=== PATIENT | female | born 1985 | race Caucasian/White ===

== ENCOUNTER 2019-09-12 17:24 | Emergency (ER) | payer SELFPAY ==
[~2019-09-12] VITALS: Ht 170.2 cm; Wt 70.1 kg
--- NOTE | 2019-09-12 17:52 | PHYS DOC ---
General Adult EDM: Chief Complaint: MECHANICAL FALL HPI: HPI: ''..My kids were making noise down stairs last night...".." I went down to check on them and missed a step...falling on my butt the last 4 steps..I still got all this swelling and blue discoloration..and pain in the area. I Patient is a 34 year old female who presents with above hx of fall on stairs last night at approximately midnight.with contusion to Rt. gluteal. Patient has a 18 x 24 area of ecchymosis and swelling on right gluteal area. Center of area somewhat fluctuant. Patient has some lower lumbar sacral tenderness. There is no pain on loading of femur on right. Distal neurovascular is equal to left leg. Patient has been using ice packs. Patient denies any history of coagulopathy. Patient is not on any [id number] home remedies or herbals currently. Patient has been taking some Advil. No history of coagulopathy of family members. No history of immunosuppression. No history of recent travel outside the [place] area or ill contacts. Review of Systems: Review of Systems: Constitutional: Denies fever or chills Eyes: Denies change in visual acuity HENT: Denies nasal congestion or sore throat Respiratory: Denies cough or shortness of breath Cardiovascular: Denies chest pain or edema GI: Denies abdominal pain, nausea, vomiting, bloody stools or diarrhea : Denies dysuria Musculoskeletal: Denies back pain or joint pain Exceot complaints of Rt.Hip pain. Integument: Denies rash Neurologic: Denies headache, focal weakness or sensory changes Endocrine: Denies polyuria or polydipsia Lymphatic: Denies swollen glands Psychiatric: Denies depression or anxiety Heart Score: Risk Factors: Risk Factors: DM, Current or recent (<one month) smoker, HTN, HLP, family history of CAD, obesity. Risk Scores: Score 0 - 3: 2.5% MACE over next 6 weeks - Discharge Home Score 4 - 6: 20.3% MACE over next 6 weeks - Admit for Clinical Observation Score 7 - 10: 72.7% MACE over next 6 weeks - Early Invasive Strategies Family History: Family History: Noncontributory to presentation Current Medications: Current Meds: See nursing for home meds Allergies: Allergies: No known drug allergies Physical Exam: PE: Constitutional: Well developed, well nourished, no acute distress, non-toxic appearance. [] HENT: Normocephalic, atraumatic, bilateral external ears normal, oropharynx moist, no oral exudates, nose normal. [] Eyes: PERRLA, EOMI, conjunctiva normal, no discharge. [] Neck: Normal range of motion, no tenderness, supple, no stridor. [] Cardiovascular:Heart rate regular rhythm, no murmur [] Lungs & Thorax: Bilateral breath sounds clear to auscultation [] Abdomen: Bowel sounds normal, soft, no tenderness, no masses, no pulsatile masses. [] Skin: Warm, dry, no erythema, no rash. [] Back: No tenderness, no CVA tenderness. [] Extremities: No tenderness, no cyanosis, no clubbing, ROM intact, no edema. [] Very large hematoma right gluteal area as per HPI Neurologic: Alert and oriented X 3, normal motor function, normal sensory function, no focal deficits noted. [] Psychologic: Affect normal, judgement normal, mood normal. [] EKG: EKG: [] Radiology/Procedures: Radiology/Procedures: [][place] [address] IMAGING REPORT Signed PATIENT: STEVE MURPHY LACCOUNT: [id number] : 1985 LOCATION: ER AGE: 34 SEX: F EXAM STATUS: REG ER ORD. PHYSICIAN: THIERRY ANDERSON MD REASON: fall down stairs PROCEDURE: CT LUMBAR SPINE WO CONTRAST Exam: CT the lumbar spine and pelvis without contrast INDICATION: Fall downstairs TECHNIQUE: Sequential axial images through the lumbar spine pelvis obtained without IV contrast. Sagittal and coronal reformatted images were reconstructed from the axial data and reviewed. Comparisons: None FINDINGS: Lumbar spine: Vertebral body heights and alignment are well-maintained. Fracture to the lumbar spine is not identified. No significant spondylotic changes lumbar spine. Visualized paraspinal soft tissues are unremarkable. Pelvis: Centered within the subcutaneous fat of the right buttock there is a 8.7 x 2.8 cm hyperdense fluid collection representing hematoma. There is surrounding stranding within the adjacent subcutaneous fat. Bone mineralization is normal. No acute or healed fractures. Visualized intrapelvic structures are unremarkable. IMPRESSION: 1. A 8.7 x 2.8 cm hematoma centered within the subcutaneous fat of the right buttock adjacent inflammatory changes. No acute fractures in the pelvis seen. 2. Negative CT L-spine for acute traumatic injury. Exposure: One or more of the following in the visualized dose reduction techniques were utilized for this examination: 1. Automated exposure control 2. Adjustment of the MA and/or KV according to patient size 3. Use of iterative of reconstructive technique Electronically signed by: Angelica Lane MD (09/12/2019 7:06 PM) [id number] DICTATED AND SIGNED BY: ANGELICA LANE MD DATE: 09/12/191905 CC: THIERRY ANDERSON MD; PCP,NO ~ Course & Med Decision Making: Course & Med Decision Making Pertinent Labs and Imaging studies reviewed. (See chart for details) Patient continue ice packs at least 4 times a day for the next week. After 1 week if no expansion of hematoma may start using warm moist heat packs. Must monitor for signs of infection. Would avoid NSAIDs currently. Take only Tylenol for pain. Follow-up with primary care. Patient issued a disc of CT of area. Patient follow-up primary care. Patient return if any concerns. Margins of hematoma marked with pen to evaluate for extension. Impression: 1. Large hematoma / contusion right gluteal area 18 x 24 cm [] Dragon Disclaimer: Dragon Disclaimer: This electronic medical record was generated, in whole or in part, using a voice recognition dictation system. Departure Departure: Disposition: 01 HOME/RESIDENCE PRIOR TO ADM Condition: STABLE Referrals: PCP,NO (PCP) Scripts Oxycodone Hcl/Acetaminophen (PERCOCET 5-325 MG TABLET ) 1 Each Tablet 1 TAB PO PRN QID PRN for PAIN MDD 4 Tablet(s) for 30 Days, #30 TAB 0 Refills Prov: THIERRY ANDERSON MD 09/12/19 Justification of Admission: Justification of Admission: Justification of Admission Dx: N/A Dragon Disclaimer This chart was dictated in whole or in part using Voice Recognition software in a busy, high-work load, and often noisy Emergency Department environment. It may contain unintended and wholly unrecognized errors or omissions. THIERRY ANDERSON MD Sep 12, 2019 17:52
[2019-09-12] MEDS ORDERED: OXYC1TAB15 PO (18:35)
[2019-09-12 19:02] VITALS: BP 123/83
[2019-09-12 19:08] LABS: BARBITURATES NEG (NEG); BENZODIAZEPINES NEG (NEG); CANNABINOIDS NEG (NEG); COCAINE NEG (NEG); METHADONE POS (NEG); OPIATES NEG (NEG); PHENCYCLIDINE NEG (NEG)
--- NOTE | 2019-09-12 19:08 | RAD ---
Exam: CT the lumbar spine and pelvis without contrast INDICATION: Fall downstairs TECHNIQUE: Sequential axial images through the lumbar spine pelvis obtained without IV contrast. Sagittal and coronal reformatted images were reconstructed from the axial data and reviewed. Comparisons: None FINDINGS: Lumbar spine: Vertebral body heights and alignment are well-maintained. Fracture to the lumbar spine is not identified. No significant spondylotic changes lumbar spine. Visualized paraspinal soft tissues are unremarkable. Pelvis: Centered within the subcutaneous fat of the right buttock there is a 8.7 x 2.8 cm hyperdense fluid collection representing hematoma. There is surrounding stranding within the adjacent subcutaneous fat. Bone mineralization is normal. No acute or healed fractures. Visualized intrapelvic structures are unremarkable. IMPRESSION: 1. A 8.7 x 2.8 cm hematoma centered within the subcutaneous fat of the right buttock adjacent inflammatory changes. No acute fractures in the pelvis seen. 2. Negative CT L-spine for acute traumatic injury. Exposure: One or more of the following in the visualized dose reduction techniques were utilized for this examination: 1. Automated exposure control 2. Adjustment of the MA and/or KV according to patient size 3. Use of iterative of reconstructive technique Electronically signed by: Carri Eldridge MD (09/12/2019 7:06 PM) [id number]
[2019-09-12 19:15] LABS: AMPHETAMINE/METHAMPHETAMINE NEG (NEG)
[2019-09-12 19:20] LABS: BASO % 0 % (0-3); EOS # 0.2 x10^3/uL (0.0-0.7); EOS % 2 % (0-3); HEMATOCRIT 35.2 % (36.0-47.0); HEMOGLOBIN 12.5 g/dL (12.0-15.5); LYMPH # 2.5 x10^3/uL (1.0-4.8); LYMPH % 30 % (24-48); MEAN CORPUSCULAR HEMOGLOBIN 33 pg (25-35); MEAN CORPUSCULAR HGB CONC 35 g/dL (31-37); MEAN CORPUSCULAR VOLUME 93 fL (79-100); MONO # 0.7 x10^3/uL (0.0-1.1); MONO % 8 % (0-9); NEUT # 4.8 x10^3uL (1.8-7.7); NEUT % 59 % (31-73); PLATELET COUNT 205 x10^3/uL (140-400); RED BLOOD COUNT 3.79 x10^6/uL (3.50-5.40); RED CELL DISTRIBUTION WIDTH 12.7 % (11.5-14.5); WHITE BLOOD COUNT 8.2 x10^3/uL (4.0-11.0)
[2019-09-12 19:26] LABS: CALCIUM 8.1 mg/dL (8.5-10.1); CREATININE 0.9 mg/dL (0.6-1.0); GFR 70.8; POTASSIUM 3.5 mmol/L (3.5-5.1)
[2019-09-12 19:29] LABS: BILIRUBIN,URINE NEG (NEG); CLARITY,URINE CLEAR; COLOR,URINE YELLOW; GLUCOSE,URINE NEG (NEG); NITRITE,URINE NEG (NEG); UROBILINOGEN,URINE 0.2 mg/dL (0.2 mg/dL)
[2019-09-12 19:30] LABS: BACTERIA,URINE FEW /HPF (0-FEW); RBC,URINE 0 /HPF (0-2); SQUAMOUS EPITHELIAL CELL,UR MOD /LPF; WBC,URINE 0 /HPF (0-4)
[2019-09-12 19:31] LABS: ALBUMIN 3.6 g/dL (3.4-5.0); ALBUMIN/GLOBULIN RATIO 1.1 (1.0-1.7); TOTAL BILIRUBIN 0.2 mg/dL (0.2-1.0); TOTAL PROTEIN 6.8 g/dL (6.4-8.2)
== END 2019-09-12 19:54 | disposition home or self-care (01) ==
LOC: ER 17:24
DX: S30.0XXA Contusion of lower back and pelvis, initial encounter (principal); W10.8XXA Fall (on) (from) other stairs and steps, initial encounter; Y93.89 Activity, other specified; Y92.89 Other specified places as the place of occurrence of the external cause; Y99.8 Other external cause status
CPT/HCPCS: 36415; 72131; 72192; 80053; 80307; 81001; 81025; 85025; 85610; 85730; 99285